=== PATIENT | male | born 1975 | race Two or more races ===

== ENCOUNTER 2020-07-21 10:41 | Outpatient (CLI) | payer OTHER | END 2020-07-21 10:42 | disposition home or self-care (01) | LOC: PPH VACUNA 10:41 | DX: Z23 Encounter for immunization (principal) ==

== ENCOUNTER 2020-08-20 08:00 | Outpatient (CLI) | payer OTHER | END 2020-08-20 08:30 | disposition home or self-care (01) | LOC: PPH VACUNA 08:00 | DX: Z23 Encounter for immunization (principal) ==